=== PATIENT | female | born 1965 | race Caucasian/White ===

== ENCOUNTER 2017-11-30 10:49 | Emergency (ER) | payer OTHER ==
[2017-11-30 11:30] LABS: #Basophils 0.1 thou/uL (0.0-0.2); #Monocytes 0.7 thou/uL (0.11-0.59); #Neutrophils 7.4 thou/uL (1.40-6.50); %Basophils 0.7 % (0.0-1.0); %Eosinophils 9.1 % (0.0-10.0); %Lymphocytes 17.8 % (21.0-51.0); %Monocytes 6.6 % (0.0-10.0); %Neutrophils 65.8 % (42.0-75.0); Mean Corpuscular HGB CONC 35.6 g/dL (32.0-36.0); Mean Corpuscular Hemoglobin 32.2 pg (27.0-31.0); Mean Corpuscular Volume 90.5 fL (78.0-98.0); Mean Platelet Volume 7.8 fL (7.4-10.4); Platelet Count 256 thou/uL (130-400); RBC Distribution Width 11.5 % (11.5-14.5); Red Blood Cell (RBC) Count 4.66 mill/uL (4.20-5.40); White Blood Cell (WBC) Count 11.2 thou/uL (4.8-10.8)
[2017-11-30 11:56] LABS: ALT (SGPT) 25 U/L (8-55); AST (SGOT) 21 U/L (5-34); Albumin 4.1 g/dL (3.5-5.0); Alkaline Phosphatase 46 U/L (40-150); Anion Gap 14 mmol/L (10-20); BUN (Urea Nitrogen) 15 mg/dL (9.8-20.1); Bilirubin, Total 0.9 mg/dL (0.2-1.2); CK (CPK) 82 U/L (29-168); Calc. Creatinine Clearance 0 mL/min (70-130); Calcium 10.1 mg/dL (7.8-10.44); Carbon Dioxide 22 mmol/L (22-29); Chloride 105 mmol/L (98-107); Estimated GFR-MDRD 58; Globulin 3.2 g/dL (2.4-3.5); Glucose 110 mg/dL (70-105); Potassium 3.9 mmol/L (3.5-5.1); Protein, Total 7.3 g/dL (6.0-8.3)
[2017-11-30 12:04] LABS: Troponin I Less than 0.010 ng/mL (< 0.028)
[2017-11-30 12:05] LABS: Sodium 137 mmol/L (136-145)
--- NOTE | 2017-11-30 14:32 | RAD ---
SINGLE VIEW OF THE CHEST: COMPARISON: 08/26/11. HISTORY: Chest palpitations. FINDINGS: Single view of the chest shows a normal sized cardiomediastinal silhouette. There is no evidence of c onsolidation, mass, or pleural effusion. The bones are unremarkable. IMPRESSION: No evidence of acute cardiopulmonary disease. POS: [facility]
== END 2017-11-30 13:54 | disposition home or self-care (01) ==
LOC: ERS 10:49
DX: R00.2 Palpitations (principal); E78.5 Hyperlipidemia, unspecified; I10 Essential (primary) hypertension; F17.210 Nicotine dependence, cigarettes, uncomplicated; Z79.899 Other long term (current) drug therapy; Z79.82 Long term (current) use of aspirin
CPT/HCPCS: 71045; 80053; 82553; 84484; 85025; 93005

== ENCOUNTER 2018-06-29 21:53 | Observation (INO) | payer OTHER, SELFPAY ==
[2018-06-29 22:28] LABS: #Basophils 0.2 thou/uL (0.0-0.2); #Eosinphils 1.8 thou/uL (0.0-0.7); #Lymphocytes 2.8 thou/uL (1.20-3.40); #Monocytes 0.7 thou/uL (0.11-0.59); #Neutrophils 6.7 thou/uL (1.40-6.50); %Basophils 1.3 % (0.0-1.0); %Eosinophils 14.5 % (0.0-10.0); %Lymphocytes 22.9 % (21.0-51.0); %Monocytes 5.7 % (0.0-10.0); %Neutrophils 55.5 % (42.0-75.0); Mean Corpuscular HGB CONC 33.9 g/dL (32.0-36.0); Mean Corpuscular Hemoglobin 31.4 pg (27.0-31.0); Mean Corpuscular Volume 92.8 fL (78.0-98.0); Platelet Count 289 thou/uL (130-400); RBC Distribution Width 11.8 % (11.5-14.5); Red Blood Cell (RBC) Count 4.45 mill/uL (4.20-5.40); White Blood Cell (WBC) Count 12.1 thou/uL (4.8-10.8)
[2018-06-29 22:48] LABS: ALT (SGPT) 33 U/L (8-55); AST (SGOT) 19 U/L (5-34); Albumin 4.1 g/dL (3.5-5.0); Alkaline Phosphatase 51 U/L (40-150); Anion Gap 16 mmol/L (10-20); BUN (Urea Nitrogen) 13 mg/dL (9.8-20.1); Bilirubin, Total 0.7 mg/dL (0.2-1.2); Calc. Creatinine Clearance 0 mL/min (70-130); Calcium 10.2 mg/dL (7.8-10.44); Carbon Dioxide 21 mmol/L (22-29); Chloride 106 mmol/L (98-107); Estimated GFR-MDRD 82; Globulin 2.8 g/dL (2.4-3.5); Glucose 168 mg/dL (70-105); Potassium 3.5 mmol/L (3.5-5.1); Protein, Total 6.9 g/dL (6.0-8.3); Sodium 139 mmol/L (136-145)
--- NOTE | 2018-06-29 23:00 | RAD ---
PORTABLE AP CHEST X-RAY: 06/29/2018 HISTORY: Chest pain. COMPARISON: 11/30/2017 FINDINGS: The cardiac silhouette and pulmonary vasculature are within normal limits. The lungs are clear. The re has been no interval change from the prior exam. IMPRESSION: No acute cardiopulmonary process. POS: [facility]
[2018-06-30] MEDS ORDERED: Ketorolac Tromethamine 30 MG/ML VIAL ONE (00:40)
[2018-06-30] MEDS ORDERED: Acetaminophen 325 MG TAB PO PRN (01:28)
[2018-06-30] MEDS ORDERED: Ondansetron ODT 4 MG TAB PO PRN (01:28)
[2018-06-30] MEDS ORDERED: HYDROcodone/Acetaminophen 5/325 mg Tablet PO PRN (01:28)
[2018-06-30 02:09] VITALS: BMI 37.8
--- NOTE | 2018-06-30 02:20 | HP ---
PRIMARY CARE PHYSICIAN: Dr. Gaspar. CHIEF COMPLAINT: Chest pain. HISTORY OF PRESENT ILLNESS: Ms. Shields is a very pleasant 53-year-old female, who reports chest pain and hypertension, onset 1 hour [employer]. Reports she has been traveling for the last 9 days, has been getting less sleep than normal, felt a little swollen in her legs. Took her blood pressure when she got home today, noticed it was elevated, so she took an extra hydrochlorothiazide and lisinopril, noted that she started to urinate more than normal after the diuretic. Swelling started to improve and then she did start developing left-sided lower chest pain. Denies radiation. Reports called 911. She was given aspirin and nitroglycerin in the ambulance. Reports that she felt better. Per EMS, her blood pressure was down to 130 systolic. Reports the pain was alleviated after the aspirin and nitroglycerin. She got up to go to the bathroom while she was in the ER, came back, sat down, and chest pain started again. Reports that she laid down on the stretcher, laid flat, pain became worse, nurse sat her up, and pain resolved. 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 She reports that both of those were normal. Reports that Dr. Chavarria did a heart catheterization 9 to 10 years ago. She denies any coronary artery disease at that time. Past medical history pertinent for hyperlipidemia, high cholesterol, hypertension. Has a significant family history of coronary artery disease and uses tobacco. Based on symptoms and history, the patient was admitted to the observation unit for further management. PAST MEDICAL HISTORY: As above, hyperlipidemia, high cholesterol, hypertension. PAST SURGICAL HISTORY: Breast reconstruction, tubal ligation. PSYCH HISTORY: None. SOCIAL HISTORY: Denies alcohol use. Denies drug use. Smoke cigarettes. Has smoked for the last 20 years, one pack per day. FAMILY HISTORY: Pertinent for coronary artery disease on both sides of her family. ALLERGIES: NONE. HOME MEDICATIONS: 1. Lisinopril/hydrochlorothiazide 10/12.5 mg daily. 2. Lipitor 40 mg daily. 3. Allopurinol 100 mg at bedtime. 4. Aspirin 81 mg daily. REVIEW OF SYSTEMS: CONSTITUTIONAL: The patient denies chills or fever. EYES: Denies any eye redness, changes in vision. ENT: Denies any sore throat or rhinorrhea. CARDIOVASCULAR: Reports chest pain. Denies syncope. Reports some mild edema of bilateral lower extremities. RESPIRATORY: Denies shortness of breath. GI: Denies abdominal pain, nausea, vomiting, diarrhea. MUSCULOSKELETAL: Denies arthralgias, myalgias. SKIN: Denies any changes. NEUROLOGIC: Denies any focal weakness or sensory changes. PHYSICAL EXAMINATION: VITAL SIGNS: Blood pressure 134/73, pulse is 77, respirations 12, temp is 97.3, pulse ox is 98% on room air. CONSTITUTIONAL: The patient appears nontoxic, in no distress, appears pain free, is alert and oriented to person, place, and time. HEENT: Head is atraumatic and normocephalic. Eyes; extraocular muscles are intact. Eyelids are normal to inspection. ENT; pharynx exam is normal. Mouth exam is normal. Mucous membranes are moist. NECK: Normal range of motion. Trachea is midline. RESPIRATORY/CHEST: No respiratory distress. Breath sounds are clear. CARDIOVASCULAR: Regular rate and rhythm. Heart sounds are normal. ABDOMEN: Nontender on palpation. Bowel sounds are heard. EXTREMITIES: Upper extremities; normal range of motion. Motor strength is normal. Sensation intact. Radial pulses are normal. Lower extremities; normal range of motion. Motor strength is normal. Sensation intact. Pedal pulses equal bilaterally. Trace edema is noted bilaterally. NEURO: The patient is oriented to person, place, and time. Speech is normal. No focal motor or sensory deficits. SKIN: Warm, dry, and normal in color. DIAGNOSTIC DATA: EKG done in the emergency room shows a normal sinus rhythm, beats per minute are 96, T-waves are normal, axis is normal. Portable chest x-ray shows no acute cardiopulmonary process. PERTINENT LABS: Troponin x1 is undetectable. BNP is 13.7. Sodium 139, potassium 3.5, chloride 106, carbon dioxide 21, gap is 16, BUN is 13, creatinine is 0.74, estimated GFR is 82, glucose is 168, calcium 10.2. Liver enzymes unremarkable. White blood cell count is 12.1, hemoglobin is 14, hematocrit is 41.3, platelet count is 289. ASSESSMENT AND PLAN: 1. Chest pain: We will trend troponins. We will ask for her records of her last stress and echo from her [employer] in [place]. We will consult Cardiology. 2. Hypertension: We will restart her home medications. We will trend vital signs. 3. Hyperlipidemia: We will restart her home medications. 4. Gastrointestinal and deep venous thrombosis prophylaxis will be started. Hospital course will be dependent on clinical findings. Job ID: [id number]
[2018-06-30 02:27] LABS: #Basophils 0.1 thou/uL (0.0-0.2); #Eosinphils 1.5 thou/uL (0.0-0.7); #Lymphocytes 3.2 thou/uL (1.20-3.40); #Monocytes 0.8 thou/uL (0.11-0.59); #Neutrophils 5.9 thou/uL (1.40-6.50); %Basophils 1.2 % (0.0-1.0); %Eosinophils 13.1 % (0.0-10.0); %Lymphocytes 27.9 % (21.0-51.0); %Neutrophils 50.8 % (42.0-75.0); Hemoglobin 13.1 g/dL (12.0-16.0); Mean Corpuscular Hemoglobin 30.9 pg (27.0-31.0); Mean Corpuscular Volume 93.6 fL (78.0-98.0); Platelet Count 270 thou/uL (130-400); RBC Distribution Width 11.9 % (11.5-14.5); Red Blood Cell (RBC) Count 4.25 mill/uL (4.20-5.40); White Blood Cell (WBC) Count 11.5 thou/uL (4.8-10.8)
[2018-06-30 02:50] LABS: Troponin I Less than 0.010 ng/mL (< 0.028)
[2018-06-30 02:57] LABS: ALT (SGPT) 30 U/L (8-55); AST (SGOT) 18 U/L (5-34); Albumin 3.7 g/dL (3.5-5.0); Alkaline Phosphatase 43 U/L (40-150); Anion Gap 14 mmol/L (10-20); BUN (Urea Nitrogen) 14 mg/dL (9.8-20.1); Bilirubin, Total 0.8 mg/dL (0.2-1.2); Calc. Creatinine Clearance 136 mL/min (70-130); Calcium 9.8 mg/dL (7.8-10.44); Carbon Dioxide 24 mmol/L (22-29); Cardiac Risk 2.8 (Less than 4.5); Chloride 106 mmol/L (98-107); Cholesterol 158 mg/dl (< 200 Desired); Estimated GFR-MDRD 80; Globulin 2.7 g/dL (2.4-3.5); Glucose 102 mg/dL (70-105); HDL Cholesterol 56 mg/dL (>60 Neg Risk); LDL Cholesterol, Calculated 82 mg/dL; Potassium 3.6 mmol/L (3.5-5.1); Protein, Total 6.4 g/dL (6.0-8.3); Sodium 140 mmol/L (136-145); Triglycerides 100 mg/dL (Less than 150)
[2018-06-30 06:58] LABS: Troponin I Less than 0.010 ng/mL (< 0.028)
[2018-06-30] MEDS: Lisinopril/Hydrochlorothiazide 10 mg/12.5 mg Tablet PO SCH (07:56)
[2018-06-30] MEDS: Aspirin 81 mg Enteric Coated Tablet PO SCH (07:56)
[2018-06-30] MEDS: Famotidine 20 MG TAB PO SCH ×2 (07:57→19:09)
[2018-06-30] MEDS ORDERED: Enoxaparin Sodium 40 MG/0.4 ML SYRINGE SC SCH (09:00)
[2018-06-30] MEDS ORDERED: Communication Order-Pharmacy FS SCH (12:30)
[2018-06-30] MEDS ORDERED: Midazolam HCl 2 mg/2 ml Vial ONE (13:57)
[2018-06-30] MEDS ORDERED: Nitroglycerin 0.4 MG TAB (25 Tab Bottle) SL PRN (14:16)
[2018-06-30] MEDS ORDERED: Acetaminophen/Codeine 30-300mg Tablet PO PRN ×2 (14:16)
[2018-06-30] MEDS ORDERED: traMADol HCl 50 MG TAB PO PRN (14:16)
[2018-06-30] MEDS ORDERED: Sodium Chloride 0.9% 200 ML IV PRN (14:30)
[2018-06-30] MEDS ORDERED: Iopamidol 370 76% 100 ML VIAL ONE (15:08)
[2018-06-30] MEDS ORDERED: Allopurinol 100 MG TAB PO SCH (21:00)
[2018-06-30] MEDS ORDERED: Atorvastatin Calcium 40 MG TAB PO SCH (21:00)
[2018-07-01 04:55] LABS: #Basophils 0.1 thou/uL (0.0-0.2); #Eosinphils 1.2 thou/uL (0.0-0.7); #Lymphocytes 2.9 thou/uL (1.20-3.40); #Monocytes 0.6 thou/uL (0.11-0.59); %Basophils 1.1 % (0.0-1.0); %Eosinophils 13.8 % (0.0-10.0); %Lymphocytes 32.6 % (21.0-51.0); %Monocytes 6.9 % (0.0-10.0); %Neutrophils 45.7 % (42.0-75.0); Mean Corpuscular HGB CONC 33.3 g/dL (32.0-36.0); Mean Corpuscular Hemoglobin 31.1 pg (27.0-31.0); Mean Corpuscular Volume 93.6 fL (78.0-98.0); Platelet Count 267 thou/uL (130-400); Red Blood Cell (RBC) Count 4.51 mill/uL (4.20-5.40); White Blood Cell (WBC) Count 8.8 thou/uL (4.8-10.8)
[2018-07-01 05:09] LABS: ALT (SGPT) 33 U/L (8-55); AST (SGOT) 22 U/L (5-34); Albumin 3.8 g/dL (3.5-5.0); Alkaline Phosphatase 44 U/L (40-150); Anion Gap 14 mmol/L (10-20); BUN (Urea Nitrogen) 14 mg/dL (9.8-20.1); Bilirubin, Total 1.2 mg/dL (0.2-1.2); Calc. Creatinine Clearance 142 mL/min (70-130); Calcium 9.6 mg/dL (7.8-10.44); Carbon Dioxide 21 mmol/L (22-29); Chloride 106 mmol/L (98-107); Estimated GFR-MDRD 84; Globulin 2.7 g/dL (2.4-3.5); Glucose 94 mg/dL (70-105); Potassium 3.8 mmol/L (3.5-5.1); Protein, Total 6.5 g/dL (6.0-8.3); Sodium 137 mmol/L (136-145)
[2018-07-01 08:14] VITALS: BP 119/66; TEMP 98.3
[2018-07-01] MEDS: Famotidine 20 MG TAB PO SCH (08:15)
[2018-07-01] MEDS: Aspirin 81 mg Enteric Coated Tablet PO SCH (08:16)
[2018-07-01] MEDS: Lisinopril/Hydrochlorothiazide 10 mg/12.5 mg Tablet PO SCH (08:16)
--- NOTE | 2018-07-01 08:59 | CON ---
DATE OF CONSULTATION: HISTORY OF PRESENT ILLNESS: The patient is a 53-year-old woman, who presents with recurrent chest discomfort. The patient was seen initially in 2011. She underwent a cardiac evaluation for chest pain. She underwent a cardiac catheterization. She was found to have normal left ventricular systolic function with normal coronary arteries. The patient has been seen in 2014 with chest pain. She underwent a Cardiolite stress test. She was found to have normal left ventricular ejection fraction of 67% and no evidence of ischemia. The patient continued to have chest discomfort. She underwent a recent stress test in [place]. She continued to have substernal chest discomfort. She was told the stress test showed no evidence of ischemia. The patient presented to emergency room with recurrent chest discomfort that required nitroglycerin tablets. The patient has multiple cardiac risk factors including hypertension, dyslipidemia, tobacco abuse and a strong family history of coronary artery disease. PAST MEDICAL HISTORY: 1. Hypertension. 2. Hypercholesterolemia. 3. Dyslipidemia. PAST SURGICAL HISTORY: Breast surgery, tubal ligation. SOCIAL HISTORY: Long history of tobacco abuse. FAMILY HISTORY: Very strong family history of heart disease. ALLERGIES: NONE. MEDICATIONS: 1. Lisinopril/HCTZ 10/12.5 daily. 2. Lipitor 40 at bedtime. 3. Aspirin 81 daily. 4. Allopurinol 100 daily. REVIEW OF SYSTEMS: Noticeable for allergies. 10-point system otherwise unremarkable. PHYSICAL EXAMINATION: GENERAL: This is an obese woman, in no acute distress with a blood pressure of 141/67. NECK: Neck showed no jugular venous distention. LUNGS: Clear to auscultation. HEART: Regular rate and rhythm. Normal S1 and S2. ABDOMEN: Distended. EXTREMITIES: Showed trace edema. VASCULAR: Radial pulses are 2+. LABORATORY DATA: White blood cell count 11.5, hemoglobin 13.1, hematocrit 39.8, platelets are 270. Sodium 140, potassium 3.6, chloride 106, bicarb 24, BUN 14, creatinine is 0.76. Her troponin less than 0.01. Her EKG revealed normal sinus rhythm with RSR prime suggests right ventricular conduction delay. No acute ST- T wave changes. IMPRESSION: 1. Chest pain. 2. Hypertension. 3. Diabetes mellitus. 4. Obesity. 5. Tobacco abuse. 6. Strong family history of coronary artery disease. This patient presents with recurrent chest discomfort. She has undergone several stress tests that revealed no evidence of ischemia. Because of her persistent symptoms, I presented the option of undergoing a repeat invasive evaluation to see whether she has progressive coronary artery disease. The patient prefers to undergo an invasive evaluation. The risks involved in the procedure explained to the patient, understanding these risks and wished to proceed. PLAN: Proceed with repeat cardiac catheterization. Job ID: [id number] MTDD
[2018-07-01] MEDS ORDERED: ALPRAZolam 0.25 MG TAB PO SCH (11:30)
== END 2018-07-01 11:49 | disposition home or self-care (01) ==
LOC: ERS 21:53 → 2SW 23:10
PROVIDERS: ADMIT Hospitalist; ATTEND Hospitalist
PROC: 4A023N7 Measurement of Cardiac Sampling and Pressure, Left Heart, Percutaneous Approach (ICD-10-PCS; principal; 2018-06-30)
PROC: B2111ZZ Fluoroscopy of Multiple Coronary Arteries using Low Osmolar Contrast (ICD-10-PCS; 2018-06-30)
DX: I25.10 Atherosclerotic heart disease of native coronary artery without angina pectoris (principal); F17.210 Nicotine dependence, cigarettes, uncomplicated; E78.00 Pure hypercholesterolemia, unspecified; E11.9 Type 2 diabetes mellitus without complications; I10 Essential (primary) hypertension; E78.5 Hyperlipidemia, unspecified; E66.9 Obesity, unspecified; Z68.37 Body mass index [BMI] 37.0-37.9, adult; Z79.82 Long term (current) use of aspirin; Z79.899 Other long term (current) drug therapy
CPT/HCPCS: 36415; 71045; 80053; 80061; 83880; 84443; 84484; 85025; 93458; 96374; 99152; C1769; G0378; J1644; J1650; J1885; J2250

== ENCOUNTER 2018-12-17 10:03 | Outpatient (CLI) | payer OTHER ==
--- NOTE | 2018-12-17 15:28 | MMO ---
Bilateral MAMMO Bilat Screen [facility]. CLINICAL HISTORY: Patient is 53 years old and is seen for screening. The patient has no family history of breast cancer. The patient has no personal history of cancer. The patient has a history of right Ultrasound Guided Core Biopsy in 2016 - benign and bilateral Implants in 2001. VIEWS: The views performed were: bilateral craniocaudal with tomosynthesis; bilateral mediolateral oblique with tomosynthesis; bilateral Implant displaced with tomosynthesis; and right exaggerated craniocaudal with tomosynthesis. FILMS COMPARED: The present examination has been compared to a prior imaging study performed at [facility] on 05/28/2016. MAMMOGRAM FINDINGS: The breasts are heterogeneously dense, which could obscure a lesion on mammography. There are masses seen in both breasts. Masses in both breasts are same or smaller than previous study. There are no suspicious masses, suspicious calcifications, or new areas of architectural distortion. IMPRESSION: THERE IS NO MAMMOGRAPHIC EVIDENCE OF MALIGNANCY. A ROUTINE FOLLOW-UP MAMMOGRAM IN 1 YEAR IS RECOMMENDED. THE RESULTS OF THIS EXAM WERE SENT TO THE PATIENT. ACR BI-RADS Category 2 - Benign finding MAMMOGRAPHY NOTE: 1. A negative mammogram report should not delay a biopsy if a dominant of clinically suspicious mass is present. 2. Approximately 10% to 15% of breast cancers are not detected by mammography. 3. Adenosis and dense breasts may obscure an underlying neoplasm. Reported by: HSE ZAPATA MD Electonically Signed: [id number]
== END 2018-12-17 10:04 | disposition home or self-care (01) ==
LOC: BICMAMMO 10:03
PROVIDERS: ATTEND Physician Assistant
DX: Z12.31 Encounter for screening mammogram for malignant neoplasm of breast (principal); Z98.82 Breast implant status
CPT/HCPCS: 77063; 77067

== ENCOUNTER 2021-07-11 08:17 | Outpatient (CLI) | payer OTHER | END 2021-07-11 08:18 | disposition home or self-care (01) | LOC: BICMAMMO 08:17 | PROVIDERS: ATTEND Physician Assistant | DX: Z12.31 Encounter for screening mammogram for malignant neoplasm of breast (principal); Z91.89 Other specified personal risk factors, not elsewhere classified; Z98.82 Breast implant status | CPT/HCPCS: 77063; 77067 ==

== ENCOUNTER 2021-12-26 13:36 | Outpatient (CLI) | payer OTHER | END 2021-12-26 13:37 | disposition home or self-care (01) | LOC: BICCT 13:36 | PROVIDERS: ATTEND Nurse Practitioner Family | DX: Z12.2 Encounter for screening for malignant neoplasm of respiratory organs (principal); R35.0 Frequency of micturition; N20.0 Calculus of kidney; R91.1 Solitary pulmonary nodule; F17.210 Nicotine dependence, cigarettes, uncomplicated | CPT/HCPCS: 71271; 76770 ==

== ENCOUNTER 2022-07-02 08:49 | Outpatient (CLI) | payer OTHER | END 2022-07-02 08:50 | disposition home or self-care (01) | LOC: BICCT 08:49 | PROVIDERS: ATTEND Nurse Practitioner Family | DX: Z12.2 Encounter for screening for malignant neoplasm of respiratory organs (principal); F17.210 Nicotine dependence, cigarettes, uncomplicated | CPT/HCPCS: 71271 ==

== ENCOUNTER 2023-07-16 10:43 | Outpatient (CLI) | payer OTHER | END 2023-07-16 10:44 | disposition home or self-care (01) | LOC: LABBT 10:43 | PROVIDERS: ATTEND Orthopaedic Surgery | DX: Z01.818 Encounter for other preprocedural examination (principal); M17.11 Unilateral primary osteoarthritis, right knee | CPT/HCPCS: 71046 ==

== ENCOUNTER 2023-07-22 06:38 | Observation (INO) | payer OTHER ==
[2023-07-16 11:26] VITALS: BMI 37.8
[2023-07-16 11:46] LABS: Bilirubin Neg (Negative); Blood, Urine Negative (Negative); Glucose, Urine (Dipstick) Normal (Negative); Ketone, Urine Negative (Negative); Leukocyte Negative (Negative); Nitrite Negative (Negative); Protein, Urine (Dipstick) Negative (Neg-Trace); Specific Gravity, Urine 1.005 (1.005-1.030); Urobilinogen Normal mg/dL (Less than 2)
[2023-07-16 11:49] LABS: #Basophils 0.1 10x3/uL (0.0-0.2); #Monocytes 0.5 10x3/uL (0.0-1.1); #Neutrophils 3.5 10x3/uL (1.5-8.4); %Basophils 1.6 % (0.0-2.0); %Eosinophils 13.7 % (0.0-6.0); %Lymphocytes 29.3 % (18.0-47.0); %Monocytes 6.9 % (0.0-10.0); %Neutrophils 48.1 % (40.0-75.0); Clarity Clear (Clear); Hematocrit 41.6 % (34.9-44.5); Hemoglobin 14.1 g/dL (12.0-15.5); Mean Corpuscular HGB CONC 33.9 g/dL (32.0-36.0); Mean Corpuscular Hemoglobin 31.1 pg (27.0-33.0); Mean Corpuscular Volume 91.6 fl (81.6-98.3); Mean Platelet Volume 10.9 fl (7.4-10.4); Platelet Count 303 10x3/uL (150-450); RBC Distribution Width 12.3 % (11.5-14.5); Red Blood Cell (RBC) Count 4.54 10x6/uL (3.90-5.03); White Blood Cell (WBC) Count 7.4 10x3/uL (3.5-10.5)
[2023-07-16 12:02] LABS: INR-International Normal Ratio 0.9
[2023-07-16 12:08] LABS: Anion Gap 12 mmol/L (10-20); BUN (Urea Nitrogen) 20 mg/dL (9.8-20.1); Calc. Creatinine Clearance 0 mL/min (70-130); Calcium 10.3 mg/dL (7.8-10.44); Carbon Dioxide 28 mmol/L (22-29); Chloride 104 mmol/L (98-107); Estimated GFR 89; Glucose 85 mg/dL (70-105); Potassium 3.5 mmol/L (3.5-5.1); Sodium 140 mmol/L (136-145)
[2023-07-22] MEDS ORDERED: fentaNYL 50 mcg/mL 1 mL Vial ONE ×5 (07:45→11:48)
[2023-07-22] MEDS ORDERED: Bupivacaine PF 0.5% 30 ML VIAL ONE ×2 (07:46→09:27)
[2023-07-22] MEDS ORDERED: Midazolam HCl 2 mg/2 ml Vial ONE (07:46)
[2023-07-22] MEDS ORDERED: Vancomycin (BATCH) 1.5 GM/300 ML BAG ONE (08:13)
[2023-07-22] MEDS ORDERED: Sodium Chloride 0.9% 100 ML ONE (08:13)
[2023-07-22] MEDS ORDERED: Tranexamic Acid 1,000 MG/10 ML VIAL ONE ×2 (08:13→13:23)
[2023-07-22] MEDS ORDERED: PROPOFOL 20 ML ONE (09:24)
[2023-07-22] MEDS ORDERED: fentaNYL 50 mcg/mL 1 mL Vial SLOW IVP PRN (09:26)
[2023-07-22] MEDS ORDERED: Clindamycin/D5W 600 mg/50 ml Premix Bag ONE (09:27)
[2023-07-22] MEDS ORDERED: Promethazine HCl 25 MG/ML VIAL IM PRN ×2 (09:30→12:38)
[2023-07-22] MEDS ORDERED: Zolpidem Tartrate 5 MG TAB PO PRN ×2 (09:30→12:38)
[2023-07-22] MEDS ORDERED: traMADol HCl 50 MG TAB PO PRN ×2 (09:30)
[2023-07-22] MEDS ORDERED: Ropivacaine 0.2% 550 ML 550 ML NERVE BLCK SCH (09:30)
[2023-07-22] MEDS ORDERED: Ondansetron PF 4 MG/2 ML Vial IVP PRN ×2 (09:30→12:38)
[2023-07-22] MEDS ORDERED: Dexamethasone 20 MG/5 ML VIAL ONE (09:50)
[2023-07-22] MEDS ORDERED: Bupivacaine HCl 0.5%/Epinephrine 1:200,000/PF 30 ml Vial ONE (09:50)
[2023-07-22] MEDS ORDERED: PHENYLEPHRINE-NS 100 MCG/ML 10 ML SYRINGE ONE (10:12)
[2023-07-22] MEDS ORDERED: Ketorolac Tromethamine 30 MG (1 mL) VIAL ONE ×2 (11:01→18:14)
[2023-07-22] MEDS ORDERED: Ondansetron PF 4 MG/2 ML Vial ONE (11:01)
[2023-07-22] MEDS ORDERED: HYDROmorphone 0.5 MG/0.5 ML SYRINGE ONE (11:59)
[2023-07-22] MEDS ORDERED: Acetaminophen 325 MG TAB PO PRN (12:38)
[2023-07-22] MEDS ORDERED: diphenhydrAMINE 25 MG CAP PO PRN (12:38)
[2023-07-22] MEDS ORDERED: Nitroglycerin 0.4 MG TAB (25 Tab Bottle) SL PRN (12:40)
[2023-07-22] MEDS ORDERED: Tranexamic Acid 1,000 MG in Sodium Chloride 0.9% 100 ML IVPB SCH (12:45)
[2023-07-22] MEDS ORDERED: Clindamycin/D5W 900 mg/50 ml Premix Bag ONE (17:53)
[2023-07-22] MEDS: Sodium Chloride 0.9% 1,000 ML IV SCH (17:58)
[2023-07-22] MEDS: Clindamycin/D5W 900 MG in Premix 1 BAG IVPB SCH (17:58)
[2023-07-22] MEDS: Ketorolac Tromethamine 30 MG (1 mL) VIAL IVP SCH (18:12)
[2023-07-22] MEDS: Aspirin 81 mg Enteric Coated Tablet PO SCH (21:08)
[2023-07-22] MEDS: Hydrochlorothiazide 25 MG TAB PO SCH (21:10)
[2023-07-22] MEDS: Lisinopril 10 MG TAB PO SCH (21:11)
[2023-07-22] MEDS: Atorvastatin Calcium 40 MG TAB PO SCH (21:11)
[2023-07-22] MEDS: Allopurinol 100 MG TAB PO SCH (21:11)
[2023-07-22] MEDS: HYDROcodone/Acetaminophen 10/325 mg Tablet PO PRN (21:12)
[2023-07-22] MEDS: Vancomycin (BATCH) 1.5 GM in Premix 1 BAG IVPB SCH (22:32)
[2023-07-23 05:58] LABS: Hematocrit 32.5 % (36.0-47.0); Hemoglobin 10.8 g/dL (12.0-16.0); Mean Corpuscular HGB CONC 33.2 g/dL (32.0-36.0); Mean Corpuscular Hemoglobin 30.7 pg (27.0-31.0); Mean Corpuscular Volume 92.3 fl (78.0-98.0); Mean Platelet Volume 10.8 fL (7.4-10.4); Platelet Count 201 10x3/uL (130-400); RBC Distribution Width 12.5 % (11.5-14.5); Red Blood Cell (RBC) Count 3.52 mill/uL (4.20-5.40); White Blood Cell (WBC) Count 9.2 10x3/uL (4.8-10.8)
[2023-07-23] MEDS: Ferrous Gluconate 324 MG TAB PO SCH (08:55)
[2023-07-23] MEDS: Senokot S 8.6-50 MG TAB PO SCH (08:56)
[2023-07-23] MEDS ORDERED: Aspirin 81 mg Enteric Coated Tablet PO SCH (09:00)
[2023-07-23 11:47] VITALS: BP 108/70
[2023-07-23] MEDS: Multivitamin W/ Minerals 1 TAB PO SCH (11:48)
[2023-07-23 11:49] VITALS: TEMP 98.1
[2023-07-23] MEDS: HYDROcodone/Acetaminophen 10/325 mg Tablet PO PRN (12:38)
== END 2023-07-23 13:43 | disposition home or self-care (01) ==
LOC: SDC 06:38 → SURG A 12:38
PROVIDERS: ADMIT Orthopaedic Surgery; ATTEND Orthopaedic Surgery
PROC: 0SRC0JZ Replacement of Right Knee Joint with Synthetic Substitute, Open Approach (ICD-10-PCS; principal; 2023-07-22)
DX: M17.11 Unilateral primary osteoarthritis, right knee (principal); I10 Essential (primary) hypertension; E78.5 Hyperlipidemia, unspecified; I25.10 Atherosclerotic heart disease of native coronary artery without angina pectoris; F17.210 Nicotine dependence, cigarettes, uncomplicated; Z79.51 Long term (current) use of inhaled steroids; Z79.82 Long term (current) use of aspirin; Z98.890 Other specified postprocedural states; Z79.899 Other long term (current) drug therapy; Z88.0 Allergy status to penicillin; Z88.8 Allergy status to other drugs, medicaments and biological substances; Z91.040 Latex allergy status
CPT/HCPCS: 36415; 80048; 81003; 85025; 85027; 85610; 86850; 86900; 86901; 87081; A4306; C1713; C1776; J0665; J1100; J1170; J1885; J2250; J2405; J2704; J2795; J3010; J3370; J3490